=== PATIENT | male | born 1940 | race Caucasian/White ===

== ENCOUNTER → 2018-02-18 11:21 | Outpatient (BNVA) | payer OTHER, SELFPAY | PROVIDERS: PCP Internal Medicine; Visit Provider Urology | DX: N42.89 Other specified disorders of prostate (principal) | CPT/HCPCS: 99213 ==

== ENCOUNTER 2018-02-18 11:57 | Outpatient (CLI) | payer OTHER, SELFPAY ==
[2018-02-19 10:57] LABS: PSA, Diagnostic 3.4 ng/ml (0-6.5)
== END 2018-02-18 12:17 ==
PROVIDERS: PCP Internal Medicine; Visit Provider Urology
DX: N42.89 Other specified disorders of prostate (principal)
CPT/HCPCS: 36415; 84153

== ENCOUNTER 2018-08-19 11:46 | Outpatient (CLI) | payer OTHER, SELFPAY ==
[2018-08-20 08:54] LABS: PSA, Diagnostic 3.7 ng/ml (0-6.5)
== END 2018-08-19 12:06 ==
PROVIDERS: PCP Internal Medicine; Visit Provider Urology
DX: N40.2 Nodular prostate without lower urinary tract symptoms (principal)
CPT/HCPCS: 36415; 84153

== ENCOUNTER 2018-12-29 11:24 | Outpatient (REF) | payer OTHER, SELFPAY ==
[2018-12-29 20:01] LABS: Glucose 102 mg/dL (70-100); TSH 1.35 uIU/mL (0.36-3.74); Vitamin B12 294 pg/mL (193-986)
== END 2018-12-29 11:44 ==
LOC: NCHCN 11:24
PROVIDERS: PCP Internal Medicine; Visit Provider Internal Medicine
DX: N40.2 Nodular prostate without lower urinary tract symptoms (principal); M71.30 Other bursal cyst, unspecified site; Z13.1 Encounter for screening for diabetes mellitus; Z13.29 Encounter for screening for other suspected endocrine disorder
CPT/HCPCS: 82947; 82607; 84443

== ENCOUNTER 2019-02-19 12:43 | Outpatient (CLI) | payer OTHER, SELFPAY | END 2019-02-19 13:03 | PROVIDERS: PCP Internal Medicine; Visit Provider Urology | DX: N40.2 Nodular prostate without lower urinary tract symptoms (principal) | CPT/HCPCS: 36415; 84153 ==

== ENCOUNTER → 2019-02-24 11:33 | Outpatient (BNVA) | payer OTHER, SELFPAY | PROVIDERS: PCP Internal Medicine; Referring Provider Internal Medicine; Visit Provider Urology | DX: N42.89 Other specified disorders of prostate (principal); R39.89 Other symptoms and signs involving the genitourinary system | CPT/HCPCS: 99213 ==

== ENCOUNTER 2019-12-31 11:57 | Outpatient (REF) | payer OTHER, SELFPAY ==
[2019-12-31 20:59] LABS: HCT 47.8 % (40.0-50.0); HGB 15.3 g/dL (13.5-17.5); MCH 28.8 pg (27.0-33.0); MPV 10.8 fL (8.0-11.0); Platelet Count 276 10^3/uL (130-400); RBC 5.31 10^6/uL (4.36-5.78); RDW 13.6 % (11.8-14.1); WBC 6.37 10^3/uL (4.4-10.8)
[2019-12-31 22:03] LABS: Anion Gap 10.5 mmol/L (3-11); BUN 16 mg/dL (7-18); CO2 25.5 mmol/L (21.0-32.0); CREATININE 0.98 mg/dL (0.70-1.30); Calcium 8.9 mg/dL (8.5-10.1); Chloride 105 mmol/L (98-107); Glucose 106 mg/dL (74-106); Potassium 4.4 mmol/L (3.5-5.1); Sodium 141 mmol/L (136-145); TSH 1.47 uIU/mL (0.36-3.74); Vitamin B12 301 pg/mL (193-986)
[2020-01-14 16:27] LABS: Albumin 3.6 g/dL (3.4-4.7); Total Protein 6.6 g/dL (6.3-7.9)
[2020-01-14 16:28] LABS: Comment See Comments; Immunotyping, Serum See Comments
== END 2019-12-31 12:17 ==
LOC: NCHCN 11:57
PROVIDERS: PCP Internal Medicine; Visit Provider Internal Medicine
DX: G60.9 Hereditary and idiopathic neuropathy, unspecified (principal); N40.0 Benign prostatic hyperplasia without lower urinary tract symptoms; Z00.00 Encounter for general adult medical examination without abnormal findings
CPT/HCPCS: 80048; 85027; 82607; 84165; 84443; 86320

== ENCOUNTER 2020-02-25 03:01 | Outpatient (CLI) | payer OTHER, SELFPAY ==
[2020-02-25 17:39] LABS: PSA, Diagnostic 2.9 ng/mL (0.0-6.5)
== END 2020-02-25 03:21 ==
PROVIDERS: PCP Internal Medicine; Visit Provider Urology
DX: N42.9 Disorder of prostate, unspecified (principal)
CPT/HCPCS: 36415; 84153

== ENCOUNTER → 2020-02-29 13:18 | Outpatient (BNVA) | payer OTHER, SELFPAY | PROVIDERS: PCP Internal Medicine; Referring Provider Internal Medicine; Visit Provider Nurse Practitioner Gerontology | DX: N42.89 Other specified disorders of prostate (principal) | CPT/HCPCS: 99213 ==

== ENCOUNTER 2020-08-04 03:55 | Outpatient (CLI) | payer OTHER, SELFPAY ==
[2020-08-04 22:51] LABS: PSA, Diagnostic 3.3 ng/mL (0.0-6.5)
[2020-08-05 16:01] LABS: Albumin 64.2 % (55.8-66.1); Comment (See Note); Total Protein 6.6 g/dL (6.3-8.2)
[2020-09-07 08:42] LABS: Immunotyping, Serum (See Note)
== END 2020-08-04 03:56 | disposition home or self-care (01) ==
LOC: LBO 03:55
PROVIDERS: Nurse Practitioner Gerontology; PCP Internal Medicine; Visit Provider Internal Medicine
DX: D47.2 Monoclonal gammopathy (principal)
CPT/HCPCS: 36415; 84153; 84165; 86320

== ENCOUNTER 2021-02-08 17:52 | Outpatient (REF) | payer MEDICARE, SELFPAY ==
[2021-02-08 20:31] LABS: Abs Immature Grans 0.03 10^3/uL (0.0-0.06); Absolute Basophil Count 0.04 10^3/uL (0.0-0.2); Absolute Lymphocyte Count 1.89 10^3/uL (1.2-3.4); Absolute Neutrophil Count 3.07 10^3/uL (1.2-6.7); Basophils % 0.7; Eosinophils % 3.4; HCT 47.8 % (40.0-50.0); HGB 15.1 g/dL (13.5-17.5); Immature Grans % 0.5; Lymphocytes % 32.4; MCH 28.1 pg (27.0-33.0); MCHC 31.6 % (32.0-36.0); MPV 10.8 fL (8.0-11.0); Monocytes % 10.3; Neutrophils % 52.7; Nucleated RBC 0 %; Platelet Count 245 10^3/uL (130-400); RBC 5.37 10^6/uL (4.36-5.78); RDW-SD 45.1 fL; WBC 5.83 10^3/uL (4.4-10.8)
[2021-02-08 20:46] LABS: ALT 74 U/L (16-63); AST 47 U/L (15-37); Albumin 3.7 g/dL (3.4-5.0); Alkaline Phosphatase 89 U/L (46-116); Anion Gap 8.2 mmol/L (3-11); BUN 19 mg/dL (7-18); Bilirubin, Total 0.5 mg/dL (0.2-1.0); CO2 26.8 mmol/L (21.0-32.0); Calcium 8.8 mg/dL (8.5-10.1); Chloride 106 mmol/L (98-107); Glucose 104 mg/dL (74-106); Potassium 4.3 mmol/L (3.5-5.1); Sodium 141 mmol/L (136-145)
[2021-02-10 10:24] LABS: PSA, Screening 4.4 ng/mL (0.0-6.5)
[2021-02-14 15:33] LABS: Albumin 64.1 % (55.8-66.1); Comment (See Note); Total Protein 7.2 g/dL (6.3-8.2)
[2021-02-15 08:40] LABS: Immunotyping, Serum (See Note)
== END 2021-02-08 17:53 | disposition home or self-care (01) ==
LOC: NCHCN 17:52
PROVIDERS: PCP Internal Medicine; Visit Provider Internal Medicine
DX: D47.2 Monoclonal gammopathy (principal); N39.41 Urge incontinence; Z00.00 Encounter for general adult medical examination without abnormal findings; Z12.5 Encounter for screening for malignant neoplasm of prostate
CPT/HCPCS: 80053; 84153; 84165; 85025; 86320

== ENCOUNTER 2021-02-15 01:52 | Outpatient (CLI) | payer MEDICARE, SELFPAY ==
--- NOTE | 2021-02-15 14:30 | DI.US_ITS ---
Exam(s) US ABDOMEN LIMITED EXAM: US ABDOMEN LIMITED CLINICAL HISTORY: MONOCLONAL GAMMOPATHY OF UNCERTAIN SIGNFICANCE, D47.2; ? SPLENOMEGALY TECHNIQUE: Ultrasound performed using standard protocol. COMPARISON: No exams were available for comparison FINDINGS: Limited ultrasound was performed to evaluate the spleen. The spleen is of normal size, measuring 9.6 x 8.6 x 3.8 cm. No focal splenic lesion identified by ultrasound criteria, however I would note colette t the spleen lies directly beneath the diaphragm and the immediate subdiaphragmatic portion of the sp marion is not well visualized. IMPRESSION: DATA REPOSITORY:
== END 2021-02-15 02:12 ==
PROVIDERS: PCP Internal Medicine; Visit Provider Internal Medicine
DX: D47.2 Monoclonal gammopathy (principal); D73.89 Other diseases of spleen
CPT/HCPCS: 76705

== ENCOUNTER → 2021-03-06 15:17 | Outpatient (BNVA) | payer MEDICARE, SELFPAY | PROVIDERS: PCP Internal Medicine; Referring Provider Internal Medicine; Visit Provider Nurse Practitioner Gerontology | DX: N42.89 Other specified disorders of prostate (principal) | CPT/HCPCS: 99213 ==

== ENCOUNTER 2021-03-09 15:22 | Outpatient (REF) | payer MEDICARE, SELFPAY ==
[2021-03-09 19:59] LABS: Iron 94 ug/dL (65-175); Total Iron Binding Capacity 224 ug/dL (250-450); Transferrin Sat 42 % (20-55)
[2021-03-09 20:07] LABS: ALT 39 U/L (16-63); AST 35 U/L (15-37); Alkaline Phosphatase 77 U/L (46-116); Bilirubin, Total 0.6 mg/dL (0.2-1.0); Ferritin 470 ng/mL (26-388); Total Protein 7.3 g/dL (6.4-8.2)
[2021-03-09 20:17] LABS: Bilirubin, Direct 0.2 mg/dL (0.0-0.2)
[2021-03-13 11:06] LABS: Hepatitis B Surface Ag Negative (Negative)
[2021-03-13 11:52] LABS: Hepatitis C Ab w Rflx HCV PCR Negative (Negative)
== END 2021-03-09 15:23 | disposition home or self-care (01) ==
LOC: NCHCN 15:22
PROVIDERS: PCP Internal Medicine; Visit Provider Internal Medicine
DX: R74.8 Abnormal levels of other serum enzymes (principal)
CPT/HCPCS: 80076; 86803; 87340; 82728; 83540; 83550

== ENCOUNTER 2021-08-07 17:33 | Outpatient (REF) | payer MEDICARE, SELFPAY ==
[2021-08-07 19:39] LABS: Abs Immature Grans 0.02 10^3/uL (0.0-0.06); Absolute Basophil Count 0.03 10^3/uL (0.0-0.2); Absolute Eosinophil Count 0.15 10^3/uL (0.0-0.7); Absolute Lymphocyte Count 1.85 10^3/uL (1.2-3.4); Absolute Monocyte Count 0.58 10^3/uL (0.1-0.8); Absolute Neutrophil Count 3.26 10^3/uL (1.2-6.7); Basophils % 0.5; Eosinophils % 2.5; HCT 44.4 % (40.0-50.0); HGB 14.7 g/dL (13.5-17.5); Immature Grans % 0.3; Lymphocytes % 31.4; MCH 29.3 pg (27.0-33.0); MCHC 33.1 % (32.0-36.0); MCV 89 fL (80-95); Monocytes % 9.8; Neutrophils % 55.5; Platelet Count 239 10^3/uL (130-400); RBC 5.01 10^6/uL (4.36-5.78); RDW 13.7 % (11.8-14.1); RDW-SD 44.4 fL; WBC 5.89 10^3/uL (4.4-10.8)
[2021-08-08 18:26] LABS: PSA, Diagnostic 3.5 ng/mL (<=6.5)
[2021-08-10 16:18] LABS: Albumin 63.7 % (55.8-66.1); Albumin g/dL 4.3 g/dL (3.6-5.2); Immunotyping, Serum (See Note); Monoclonal Spike g/dL 0.2 g/dL (None Seen); Total Protein 6.7 g/dL (6.3-8.2)
== END 2021-08-07 17:34 | disposition home or self-care (01) ==
LOC: NCHCN 17:33
PROVIDERS: PCP Internal Medicine; Visit Provider Internal Medicine
DX: R74.8 Abnormal levels of other serum enzymes (principal); D47.2 Monoclonal gammopathy; N40.0 Benign prostatic hyperplasia without lower urinary tract symptoms
CPT/HCPCS: 84153; 84155; 84165; 85025; 86320

== ENCOUNTER 2021-09-04 14:31 | Outpatient (REF) | payer MEDICARE, SELFPAY | END 2021-09-04 14:32 | disposition home or self-care (01) | LOC: NCHCN 14:31 | PROVIDERS: PCP Internal Medicine; Visit Provider Internal Medicine ==

== ENCOUNTER 2021-09-04 15:27 | Outpatient (CLI) | payer MEDICARE, SELFPAY ==
[2021-09-04 15:45] LABS: CREATININE 0.9 mg/dL (0.70-1.30)
== END 2021-09-04 15:28 | disposition home or self-care (01) ==
LOC: LBO 15:28
PROVIDERS: PCP Internal Medicine; Visit Provider Internal Medicine
DX: U07.1 COVID-19 (principal)
CPT/HCPCS: 36415; 82565

== ENCOUNTER 2022-02-27 03:06 | Outpatient (CLI) | payer MEDICARE, SELFPAY ==
[2022-02-28 18:15] LABS: PSA, Diagnostic 4.7 ng/mL (<=6.5)
== END 2022-02-27 03:07 | disposition home or self-care (01) ==
PROVIDERS: PCP Internal Medicine; Visit Provider Nurse Practitioner Gerontology
DX: R39.89 Other symptoms and signs involving the genitourinary system; N40.1 Benign prostatic hyperplasia with lower urinary tract symptoms; R97.20 Elevated prostate specific antigen [PSA]
CPT/HCPCS: 36415; 84153

== ENCOUNTER → 2022-03-05 15:24 | Outpatient (BNVA) | payer MEDICARE, SELFPAY | PROVIDERS: PCP Internal Medicine; Referring Provider Internal Medicine; Visit Provider Nurse Practitioner Gerontology | DX: N39.41 Urge incontinence (principal); N40.1 Benign prostatic hyperplasia with lower urinary tract symptoms; N42.89 Other specified disorders of prostate | CPT/HCPCS: 51798; 99213 ==

== ENCOUNTER 2022-08-08 13:22 | Outpatient (REF) | payer MEDICARE, SELFPAY ==
[2022-08-08 20:34] LABS: Abs Immature Grans 0.02 10^3/uL (0.0-0.06); Absolute Basophil Count 0.05 10^3/uL (0.0-0.2); Absolute Eosinophil Count 0.19 10^3/uL (0.0-0.7); Absolute Lymphocyte Count 2.07 10^3/uL (1.2-3.4); Absolute Monocyte Count 0.55 10^3/uL (0.1-0.8); Absolute Neutrophil Count 3.13 10^3/uL (1.2-6.7); Basophils % 0.8; Eosinophils % 3.2; HCT 47.2 % (40.0-50.0); HGB 15.2 g/dL (13.5-17.5); Immature Grans % 0.3; Lymphocytes % 34.4; MCH 28.5 pg (27.0-33.0); MCHC 32.2 % (32.0-36.0); MCV 89 fL (80-95); MPV 10.8 fL (8.0-11.0); Monocytes % 9.2; Neutrophils % 52.1; Platelet Count 239 10^3/uL (130-400); RBC 5.33 10^6/uL (4.36-5.78); RDW 13.6 % (11.8-14.1); RDW-SD 44.3 fL; WBC 6.01 10^3/uL (4.4-10.8)
[2022-08-08 21:36] LABS: ALT 31 U/L (16-63); AST 26 U/L (15-37); Albumin 3.6 g/dL (3.4-5.0); Alkaline Phosphatase 111 U/L (46-116); Anion Gap 6.5 mmol/L (3-11); BUN 15 mg/dL (7-18); Bilirubin, Total 0.4 mg/dL (0.2-1.0); CO2 28.5 mmol/L (21.0-32.0); Calcium 8.8 mg/dL (8.5-10.1); Chloride 107 mmol/L (98-107); Estimated GFR 76.08 (mL/min/1.73m2); Glucose 99 mg/dL (74-106); Potassium 4.4 mmol/L (3.5-5.1); Sodium 142 mmol/L (136-145); Total Protein 7.3 g/dL (6.4-8.2); Vitamin B12 256 pg/mL (193-986)
[2022-08-10 15:18] LABS: Albumin 61.8 % (55.8-66.1); Albumin g/dL 4.3 g/dL (3.6-5.2); Comment (See Note); Monoclonal Spike 2.6 % (None Seen); Monoclonal Spike g/dL 0.2 g/dL (None Seen); Total Protein 6.9 g/dL (6.3-8.2)
[2022-08-10 16:49] LABS: Immunotyping, Serum (See Note)
[2022-08-15 09:22] LABS: Methylmalonic Acid 0.26 nmol/mL (<=0.40)
== END 2022-08-08 13:23 | disposition home or self-care (01) ==
LOC: NCHCN 13:22
PROVIDERS: PCP Internal Medicine; Visit Provider Internal Medicine
DX: D47.2 Monoclonal gammopathy (principal); G62.9 Polyneuropathy, unspecified
CPT/HCPCS: 80053; 80186; 82607; 84165; 85025; 86320

== ENCOUNTER → 2022-11-20 09:56 | Outpatient (BNVA) | payer MEDICARE, SELFPAY | PROVIDERS: PCP Internal Medicine; Referring Provider Internal Medicine; Visit Provider Surgery | DX: L57.0 Actinic keratosis (principal) | CPT/HCPCS: 11442; 99202; 99214 ==

== ENCOUNTER 2022-11-20 10:14 | Outpatient (REF) | payer MEDICARE, SELFPAY ==
--- NOTE | 2022-11-20 10:15 | SKI_PTH ---
PATIENT: Derrek Steward LOC: [facility] U#:[id number] AGE/SX: 82/M ROOM: RE11/20/[address]: Rosalind Dominguez MD : 1940 BED: DIS: 11/20/2022 SPEC #: [id number] RECD: 11/20/22 14:40 STATUS: JOVANA REQ #: [id number] ALIYA: 11/20/22 10:[address]: Rosalind Dominguez DEPT: Surgical Specimen RECD BY: Iveth Young ENTERED: 11/20/22 14:41 SP TYPE: SKI OT DR: Al Cabrera Tissues: 1 - SKIN BIOPSY(SHAVE/PUNCH) Procedures: SKIN LEVEL 4 Comments: [id number]
== END 2022-11-20 10:15 | disposition home or self-care (01) ==
LOC: LBN 10:14
PROVIDERS: PCP Internal Medicine; Visit Provider Surgery
DX: L98.9 Disorder of the skin and subcutaneous tissue, unspecified (principal)
CPT/HCPCS: 88305

== ENCOUNTER → 2022-11-27 09:54 | Outpatient (BNVA) | payer MEDICARE, SELFPAY | PROVIDERS: PCP Internal Medicine; Referring Provider Internal Medicine; Visit Provider Surgery | DX: L57.0 Actinic keratosis (principal) ==

== ENCOUNTER 2023-03-06 03:06 | Outpatient (CLI) | payer MEDICARE, SELFPAY ==
[2023-03-06 18:21] LABS: PSA, Diagnostic 4.1 ng/mL (<=6.5)
== END 2023-03-06 03:07 | disposition home or self-care (01) ==
LOC: LBO 03:06
PROVIDERS: PCP Internal Medicine; Visit Provider Nurse Practitioner Gerontology
DX: N40.1 Benign prostatic hyperplasia with lower urinary tract symptoms (principal); N42.89 Other specified disorders of prostate; R39.89 Other symptoms and signs involving the genitourinary system
CPT/HCPCS: 36415; 84153

== ENCOUNTER → 2023-03-13 13:40 | Outpatient (BNVA) | payer MEDICARE, SELFPAY | PROVIDERS: PCP Internal Medicine; Visit Provider Nurse Practitioner Gerontology | DX: N40.1 Benign prostatic hyperplasia with lower urinary tract symptoms (principal); N42.89 Other specified disorders of prostate | CPT/HCPCS: 51798; 99213 ==

== ENCOUNTER 2023-08-09 13:32 | Outpatient (REF) | payer MEDICARE, SELFPAY ==
[2023-08-09 18:48] LABS: HCT 46.8 % (40.0-50.0); HGB 15.2 g/dL (13.5-17.5); MCH 28.5 pg (27.0-33.0); MCHC 32.5 % (32.0-36.0); MCV 88 fL (80-95); Platelet Count 225 10^3/uL (130-400); RBC 5.33 10^6/uL (4.36-5.78); RDW 13.2 % (11.8-14.1); WBC 5.54 10^3/uL (4.4-10.8)
[2023-08-09 18:54] LABS: Anion Gap 6.1 mmol/L (3-11); BUN 19 mg/dL (7-18); CO2 28.9 mmol/L (21.0-32.0); Calcium 9.3 mg/dL (8.5-10.1); Chloride 107 mmol/L (98-107); Estimated GFR 75.61 (mL/min/1.73m2); Glucose 107 mg/dL (74-106); Potassium 4.3 mmol/L (3.5-5.1); Sodium 142 mmol/L (136-145)
[2023-08-12 14:16] LABS: Albumin 62.3 % (55.8-66.1); Albumin g/dL 4.4 g/dL (3.6-5.2); Comment (See Note); Monoclonal Spike 2.8 % (None Seen); Monoclonal Spike g/dL 0.2 g/dL (None Seen)
== END 2023-08-09 13:33 | disposition home or self-care (01) ==
LOC: NCHCN 13:32
PROVIDERS: PCP Internal Medicine; Visit Provider Internal Medicine
DX: I95.1 Orthostatic hypotension (principal); D47.2 Monoclonal gammopathy
CPT/HCPCS: 80048; 85027; 84165

== ENCOUNTER 2024-03-04 01:51 | Outpatient (CLI) | payer MEDICARE, SELFPAY ==
[2024-03-04 20:03] LABS: PSA, Diagnostic 4.1 ng/mL (<=6.5)
== END 2024-03-04 01:52 | disposition home or self-care (01) ==
LOC: LBO 01:51
PROVIDERS: PCP Internal Medicine; Visit Provider Nurse Practitioner Gerontology
DX: N40.1 Benign prostatic hyperplasia with lower urinary tract symptoms (principal); R39.9 Unspecified symptoms and signs involving the genitourinary system; N42.89 Other specified disorders of prostate
CPT/HCPCS: 36415; 84153

== ENCOUNTER → 2024-03-11 14:23 | Outpatient (BNVA) | payer MEDICARE, SELFPAY | PROVIDERS: PCP Internal Medicine; Visit Provider Nurse Practitioner Gerontology | DX: N40.1 Benign prostatic hyperplasia with lower urinary tract symptoms (principal); N42.89 Other specified disorders of prostate | CPT/HCPCS: 51798; 99213 ==

== ENCOUNTER 2024-08-10 18:36 | Outpatient (REF) | payer MEDICARE, SELFPAY ==
[2024-08-10 19:48] LABS: HCT 45.2 % (40.0-50.0); HGB 14.8 g/dL (13.5-17.5); MCHC 32.7 % (32.0-36.0); MCV 89 fL (80-95); MPV 10.2 fL (8.0-11.0); Platelet Count 244 10^3/uL (130-400); RDW 13.4 % (11.8-14.1); RDW-SD 43.7 fL; WBC 5.89 10^3/uL (4.4-10.8)
[2024-08-11 22:19] LABS: Total Protein 6.6 g/dL (6.3-8.2)
[2024-08-12 13:18] LABS: Albumin 61.9 % (55.8-66.1); Albumin g/dL 4.1 g/dL (3.6-5.2); Comment (See Note); Monoclonal Spike 3.6 % (None Seen); Monoclonal Spike g/dL 0.2 g/dL (None Seen)
== END 2024-08-10 18:37 | disposition home or self-care (01) ==
LOC: NCHCN 18:36
PROVIDERS: PCP Internal Medicine; Visit Provider Internal Medicine
DX: D47.2 Monoclonal gammopathy (principal)
CPT/HCPCS: 85027; 84165

== ENCOUNTER 2024-11-23 21:07 | Outpatient (REF) | payer MEDICARE, SELFPAY ==
--- NOTE | 2024-11-23 16:40 | SKI_PTH ---
PATIENT: Derrek Steward LOC: [facility]#:[id number] AGE/SX: 84/M ROOM: RE11/23/[address]: Melisa Melendrez : 1940 BED: DIS: 11/23/2024 SPEC #: [id number] RECD: 11/24/24 12:57 STATUS: JOVANA RESarah #: [id number] ALIYA: 11/23/24 16:[address] RECD BY: Karol Ramirez ENTERED: 11/24/24 12:57 SP TYPE: GRACIE ARCINIEGA DR: Al Cabrera Tissues: 1 - SKIN BIOPSY(SHAVE/PUNCH) Procedures: SKIN LEVEL 4 Comments: [id number]
== END 2024-11-23 21:08 | disposition home or self-care (01) ==
LOC: NCHCN 21:07
PROVIDERS: PCP Internal Medicine; Visit Provider Nurse Practitioner Family
DX: L82.1 Other seborrheic keratosis (principal)
CPT/HCPCS: 88305